=== PATIENT | female | born 1935 | race Hispanic/Latino ===

== ENCOUNTER 2020-12-22 05:30 | Day surgery (SDC) | payer MEDICARE ==
[2020-12-19 12:12] LABS: BASOPHILS % (AUTO) 0.7 % (0.0-5.0); EOSINOPHILS % (AUTO) 2.1 % (0.0-8.0); HEMATOCRIT 40.9 % (36-48); LYMPHOCYTES % (AUTO) 22.1 % (21.0-51.0); MEAN CORPUSCULAR HEMOGLOBIN 29.3 pg (27.0-33.0); MEAN CORPUSCULAR HGB CONC 31.3 g/dL (32.0-36.0); MEAN CORPUSCULAR VOLUME 93.6 fL (79-99); NEUTROPHILS % (AUTO) 68.7 % (40.0-77.0); PLATELET COUNT (AUTO) 272 K/uL (130-400); RED BLOOD CELL COUNT(AUTO) 4.37 MIL/uL (4.00-5.50); RED CELL DISTRIBUTION WIDTH 12.4 % (11.0-15.5); WHITE BLOOD COUNT (AUTO) 9.5 K/uL (4.8-10.8)
[2020-12-19 12:22] LABS: CREATININE 1.6 mg/dL (0.5-1.5); POTASSIUM 4.2 mmol/L (3.5-5.1)
[2020-12-19 12:23] LABS: INR 1.02 (0.85-1.15); PROTHROMBIN TIME 11.1 SEC (9.6-11.6)
[2020-12-19 12:24] LABS: PARTIAL THROMBOPLASTIN TIME 33.4 SEC (26.3-35.5)
[2020-12-19 12:39] VITALS: BP 173/61
[2020-12-22] VITALS (10 sets, daily range): BP systolic 98–142; BP diastolic 46–61
[~2020-12-22] VITALS: Ht 165.1 cm; Wt 71.6 kg
[~2020-12-22 05:30] MED LIST: AEC81 PO; APIX5TAB PO; CHOL100040 PO; CLON0.1T PO; DILT-116 PO; EMPA10TA PO; FLUT16H NS; HYDR-4153 PO; INS7030 SQ; LEVE750T4 PO; LORA10TA7 PO; METO200T49 PO; NITR0.4T50 SL; OLME-9 PO; ROSU10TA28 PO; SODIUM CHLORIDE 0.9% 1000ML 1,000 ML IV SCH; calcium/mag/zinc PO
[2020-12-22] MEDS ORDERED: CEFAZOLIN SODIUM 1 GM VIAL ONE (07:19)
[2020-12-22] MEDS ORDERED: BUPIVACAINE/PF 0.25% 30ML VIAL IJ ONE (07:19)
[2020-12-22] MEDS ORDERED: MEPERIDINE-PF 25 MG/ML SYG ONE (07:20)
[2020-12-22] MEDS ORDERED: MIDAZOLAM HCL 1 MG/ML 2ML VIAL ONE (07:20)
[2020-12-22] MEDS ORDERED: LIDOCAINE HCL 1% MDV 50ML VIAL ONE (07:20)
[2020-12-22] MEDS ORDERED: VANCOMYCIN 1GM+NS 250ML 500 ML IV ONE (07:21)
[2020-12-22] MEDS ORDERED: DEXTROSE 50%-WATER 50 ML DISP.SYRIN IV PRN (08:45)
[2020-12-22] MEDS ORDERED: INSULIN HUMULIN R 100 UNIT/ML 3ML ONE (09:45)
[2020-12-22] MEDS ORDERED: INSULIN HUMULIN R 100 UNIT/ML 3ML SQ SCH (11:30)
[2020-12-22] MEDS ORDERED: ACETAMINOPHEN 325 MG TAB ONE (12:59)
== END 2020-12-22 14:05 | disposition home or self-care (01) ==
LOC: DAH 05:30
PROVIDERS: ATTEND Internal Medicine Cardiovascular Disease
DX: I49.5 Sick sinus syndrome (principal); I10 Essential (primary) hypertension; E11.9 Type 2 diabetes mellitus without complications; E78.5 Hyperlipidemia, unspecified; Z95.0 Presence of cardiac pacemaker; Z88.0 Allergy status to penicillin; Z79.01 Long term (current) use of anticoagulants; Z79.4 Long term (current) use of insulin; Z79.899 Other long term (current) drug therapy
CPT/HCPCS: 33228; 36415; 80048; 82948 ×4; 85025; 85610; 85730; 93005; A4215; A4216; A4221; A4222; A4223 ×3; A4606; A4663; C1785; C1894; J1815 ×2; J2175; J2250; J3370; J3490 ×2; J7030; 99156; 99157; J0690